=== PATIENT | male | born 1960 | race Hispanic/Latino ===

== ENCOUNTER 2021-04-28 09:08 | Emergency (ER) | payer OTHER ==
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
--- NOTE | 2021-04-28 11:52 | XRay Report ---
CERVICAL SPINE 4 VIEWS INDICATION: lumbar tenderness. COMPARISON: None. IMPRESSION: There is poor visualization of C7 and T1 on the lateral image. No swimmer's view is pres ented. There is normal alignment from C1-C6. No significant discogenic DJD or facet arthropathy. No acute osseous or soft tissue abnormality. LUMBOSACRAL SPINE 3 VIEWS INDICATION: lumbar tenderness. COMPARISON: None. IMPRESSION: Normal alignment. There is been previous posterior fusion from L4-S1 with disc spacer p lacement at L4-5 and L5-S1. There is 5 mm retrolisthesis of L4 with respect to L5. The remaining lumb ar vertebra are normal in alignment. Moderate degenerative changes are present in the lower lumbar sp ine. No acute osseous or soft tissue abnormality. Signer Name: Zeus Ivey Jr, MD Signed: 04/28/2021 11:48 AM Workstation Name: [id number]
--- NOTE | 2021-04-28 12:12 | Cat Scan Report ---
CT HEAD WITHOUT CONTRAST INDICATION / CLINICAL INFORMATION: headache. TECHNIQUE: Axial imaging performed from the skull apex through the skull base without the use of cont rast. Sagittal and coronal reformatted images. All CT scans at this location are performed using CT dose reduction for ALARA by means of automated exposure control. COMPARISON: None available. FINDINGS: CEREBRAL PARENCHYMA: No significant abnormality. No acute territorial infarct. HEMORRHAGE: None. EXTRA-AXIAL SPACES: Normal in size and morphology for the patient's age. VENTRICULAR SYSTEM: Normal in size and morphology for the patient's age. MIDLINE SHIFT OR HERNIATION: None. CEREBELLUM / BRAINSTEM: No significant abnormality. CALVARIUM: No significant abnormality. ORBITS: Subtle chronic right medial orbital wall fracture is identified. The orbital cavities and con tents are otherwise unremarkable. PARANASAL SINUSES / MASTOID AIR CELLS: Normal as visualized. SOFT TISSUES of HEAD: No significant abnormality. ADDITIONAL FINDINGS: None. IMPRESSION: No acute intracranial abnormality. Signer Name: Zeus Ivey Jr, MD Signed: 04/28/2021 11:57 AM Workstation Name: [id number]
[2021-04-28 12:57] VITALS: BP 154/94
== END 2021-04-28 12:57 | disposition home or self-care (01) ==
LOC: ED 09:08
DX: M54.2 Cervicalgia (principal); R51.9 Headache, unspecified; M54.9 Dorsalgia, unspecified; V29.9XXA Motorcycle rider (driver) (passenger) injured in unspecified traffic accident, initial encounter; Y93.89 Activity, other specified; Y92.89 Other specified places as the place of occurrence of the external cause; Y99.8 Other external cause status
CPT/HCPCS: 70450; 72040; 72100; 99284